=== PATIENT | female | born 1950 | race Caucasian/White ===

== ENCOUNTER → 2017-08-24 10:26 | Outpatient (CLI) | payer MEDICARE, SELFPAY ==
--- NOTE | 2017-08-24 | DI.ECHO.S_ITS ---
[facility]---------+ [facility] +---------+ : : [address] : : : : [place], [place] : : : : [id number] : : : : Phone: [phone]+ Echocardiogram Report + + :Name: MARY HEALY Study Date: 08/24/2017 Height: 67 in : :[facility] Exam Location: [facility] Weight: 190 lb : : Gender: Female BSA: 2.0 m2 : :: 1950 Age: 66 yrs BP: 190/110 mmHg: :Reason For Study: HTN : : Performed By: Otilio Felder : :Referring: KAREEM FREEMAN : + + Interpretation Summary 1) Mild-moderate concentric left ventricular hypertrophy.with normal size, wall motion, and systolic function (EF 65-70%). 2) Normal right ventricular size and function. 3) No significant valvular abnormalities. 4) Severe Hypertension present during the study (BP 190/110). 5) No prior Echo available for comparison. Procedure: A two-dimensional transthoracic echocardiogram with color flow and Doppler was performed. The study quality was technically adequate. There is no prior echocardiogram noted for this patient. The patient was in normal sinus rhythm during the exam. Left Ventricle: The left ventricle is normal in size. There is mild-moderate concentric left ventricular hypertrophy. The ejection fraction is estimated to be 65-70%. There are no focal wall motion abnormalities. Assessment of diastolic parameters suggests a pseudonormalization pattern, consistent with elevated filling pressures. Right Ventricle: The right ventricle is normal in size and function. Atria: Both atria are normal in size. The interatrial septum is intact with no evidence for an atrial septal defect. Mitral Valve: The mitral valve is normal in structure and function. There is mild mitral annular calcification. There is trace mitral regurgitation. Aortic Valve: The aortic valve is normal in structure and function. The aortic valve is trileaflet. The aortic valve opens well. There is no aortic valve stenosis. No aortic regurgitation is present. Tricuspid Valve: The tricuspid valve is normal in structure and function. No tricuspid regurgitation. Pulmonary artery pressures cannot be estimated because of the lack of a measurable TR jet velocity. Pulmonic Valve: The pulmonic valve is not well visualized. Great Vessels: The aortic root is normal size. The dimensions of the ascending aorta are normal. The pulmonary artery is normal size. The IVC is of normal diameter and collapses greater than 50% with a sniff. This suggests a low right atrial pressure of 3 mm Hg. Pericardium/ Pleura There is no pericardial effusion. There is no pleural effusion. MMode/2D Measurements & Calculations LVIDd: 4.3 cm Ao root diam: 2.9 cm LVIDs: 1.8 cm Aortic Jxn: 2.3 cm FS: 57.3 % asc Aorta Diam: 3.1 cm EPSS: 0.20 cm Ao Arch Diam (Prox Trans): 2.6 cm IVSd: 1.2 cm LVPWd: 1.1 cm LV barnes. diameter/BSA (cm/m^2): 2.2 LV sys. diameter/BSA (cm/m^2): 0.93 LA dimension: 3.4 cm RA long axis: 3.7 cm LA A2 area: 19.3 cm2 RA area: 12.1 cm2 LA A4 area: 18.6 cm2 RA vol: 34.0 ml LA length (vol): 5.0 cm RA : 17.2 ml/m2 LA vol: 61.0 ml IVC diam: 1.8 cm LA vol index: 30.8 ml/m2 Doppler Measurements & Calculations Ao V2 max: 142.1 cm/sec LVOT Max Roger: 116.8 cm/sec Ao V2 mean: 101.3 cm/sec LV V1 max P.5 mmHg Ao max P.1 mmHg LV V1 VTI: 26.3 cm Ao mean P.5 mmHg sev ratio: 1.00 Ao V2 VTI: 26.4 cm MV E max roger: 78.5 cm/sec PA V2 max: 102.9 cm/sec MV A max roger: 94.0 cm/sec PA V2 mean: 82.2 cm/sec MV E/A: 0.84 PA mean P.8 mmHg Med Peak E' Roger: 4.7 cm/sec PA pr(Accel): 16.6 mmHg E/E' med: 16.8 PA Accel Time: 0.14 sec Lat Peak E' Roger: 6.3 cm/sec E/E' lat: 12.4 E/e' average: 14.6 MV dec time: 0.20 sec Pulm A Revs Roger: 29.2 cm/sec Reading Physician:01:06 PM
== END ==
PROVIDERS: Visit Provider Internal Medicine Cardiovascular Disease
DX: I11.9 Hypertensive heart disease without heart failure (principal); I10 Essential (primary) hypertension
CPT/HCPCS: 93306